=== PATIENT | female | born 1980 | race Two or more races ===

== ENCOUNTER 2018-02-22 20:04 | Emergency (ER) | payer SELFPAY ==
[~2018-02-22] VITALS: Ht 147.3 cm; Wt 66.2 kg
[2018-02-22 20:56] LABS: BASO % 1 % (0-3); EOS # 0.1 x10^3/uL (0.0-0.7); EOS % 1 % (0-3); HEMATOCRIT 39.6 % (36.0-47.0); HEMOGLOBIN 13.8 g/dL (12.0-15.5); LYMPH # 2.1 x10^3/uL (1.0-4.8); LYMPH % 26 % (24-48); MEAN CORPUSCULAR HEMOGLOBIN 30 pg (25-35); MEAN CORPUSCULAR HGB CONC 35 g/dL (31-37); MEAN CORPUSCULAR VOLUME 87 fL (79-100); MONO # 0.7 x10^3/uL (0.0-1.1); MONO % 8 % (0-9); NEUT # 5.3 x10^3uL (1.8-7.7); NEUT % 64 % (31-73); PLATELET COUNT 270 x10^3/uL (140-400); RED BLOOD COUNT 4.54 x10^6/uL (3.50-5.40); RED CELL DISTRIBUTION WIDTH 13.4 % (11.5-14.5); WHITE BLOOD COUNT 8.2 x10^3/uL (4.0-11.0)
[2018-02-22 20:58] LABS: BILIRUBIN,URINE NEGATIVE (NEG); CLARITY,URINE CLEAR; COLOR,URINE YELLOW; NITRITE,URINE NEGATIVE (NEG); PROTEIN,URINE NEGATIVE (NEG-TRACE); UROBILINOGEN,URINE 0.2 mg/dL (0.2 mg/dL)
[2018-02-22 21:02] LABS: CALCIUM 8.9 mg/dL (8.5-10.1); CREATININE 0.7 mg/dL (0.6-1.0); GFR 93.2; POTASSIUM 3.5 mmol/L (3.5-5.1)
[2018-02-22 21:11] LABS: BACTERIA,URINE MOD /HPF (0-FEW); RBC,URINE 0 /HPF (0-2); SQUAMOUS EPITHELIAL CELL,UR FEW /LPF
--- NOTE | 2018-02-22 21:30 | PHYS DOC ---
Past Medical History Past Medical History: No Pertinent History Past Surgical History: No Surgical History Alcohol Use: None Drug Use: None Adult General Chief Complaint Chief Complaint: VAGINAL BLEEDING HPI HPI Patient is a 37 year old female who presents with vaginal bleeding in early . The patient states her last menstrual period was December 20. She has had positive test and has already undergone ultrasound but states there was nothing seen in her uterus. Today, she presents to the ER complaining of spotting of blood. She noticed one episode of this that started about one hour prior to presentation. She has no overt or rita bleeding. She has no pelvic pain or cramps. No fever or chills. Urinary symptoms. Review of Systems Review of Systems Constitutional: Denies fever or chills Eyes: Denies change in visual acuity HENT: Denies nasal congestion Respiratory: Denies cough or shortness of breath Cardiovascular: No additional information GI: Denies abdominal pain : Denies dysuria or hematuria Musculoskeletal: Denies back pain Integument: Denies rash or skin lesions Neurologic: Denies headache All other systems were reviewed and found to be within normal limits, except as documented in this note. Current Medications Current Medications Current Medications Medications (Trade) Dose Ordered Sig/Carly Start Time Stop Time Status Last Admin Dose Admin Acetaminophen (Tylenol) 1,000 mg 1X ONCE 02/23/18 00:15 02/23/18 00:16 UNV 02/23/18 00:05 1,000 MG Acetaminophen/ Butalbital/ Caffeine (Fioricet) 1 tab 1X ONCE 02/23/18 00:15 02/23/18 00:15 DC Allergies Allergies Allergies Coded Allergies Type Severity Reaction Last Updated Verified No Known Drug Allergies 02/22/18 No Physical Exam Physical Exam Constitutional: Well developed, well nourished, no acute distress HENT: Normocephalic, atraumatic, bilateral external ears normal, oropharynx moist Eyes: PERRLA, EOMI, conjunctiva normal Neck: Normal range of motion, no tenderness Cardiovascular:Heart rate regular rhythm, no murmur Lungs & Thorax: Bilateral breath sounds clear to auscultation Abdomen: Bowel sounds normal, soft, no tenderness Skin: Warm, dry, no erythema, no rash Back: No tenderness, no CVA tenderness. Extremities: No edema Neurologic: Alert and oriented X 3 Psychologic: Affect normal Pelvic: Normal female external genitalia. Vaginal mucosa is moist and uninflamed. Cervical os is visualized to be closed but with scant amt of old appearing blood at the OS. no active bleeding. No CMT or adnexal tenderness. Current Patient Data Vital Signs Vital Signs Date Time Temp Pulse Resp B/P (MAP) Pulse Ox O2 Delivery O2 Flow Rate FiO2 02/23/18 00:06 68 121/56 (77) 99 Room Air 02/22/18 20:52 98.2 18 98.2 Lab Values Laboratory Tests Test 02/22/18 20:35 02/22/18 20:42 02/22/18 20:47 Urine Collection Type Unknown Urine Color Yellow Urine Clarity Clear Urine pH 5.0 Urine Specific [place] 1.010 Urine Protein Negative mg/dL (NEG-TRACE) Urine Glucose (UA) Negative mg/dL (NEG) Urine Ketones (Stick) Negative mg/dL (NEG) Urine Blood Small (NEG) Urine Nitrite Negative (NEG) Urine Bilirubin Negative (NEG) Urine Urobilinogen Dipstick 0.2 mg/dL (0.2 mg/dL) Urine Leukocyte Esterase Trace (NEG) Urine RBC 0 /HPF (0-2) Urine WBC 1-4 /HPF (0-4) Urine Squamous Epithelial Cells Few /LPF Urine Bacteria Mod /HPF (0-FEW) Urine Mucus Mod /LPF White Blood Count 8.2 x10^3/uL (4.0-11.0) Red Blood Count 4.54 x10^6/uL (3.50-5.40) Hemoglobin 13.8 g/dL (12.0-15.5) Hematocrit 39.6 % (36.0-47.0) Mean Corpuscular Volume 87 fL (79-100) Mean Corpuscular Hemoglobin 30 pg (25-35) Mean Corpuscular Hemoglobin Concent 35 g/dL (31-37) Red Cell Distribution Width 13.4 % (11.5-14.5) Platelet Count 270 x10^3/uL (140-400) Neutrophils (%) (Auto) 64 % (31-73) Lymphocytes (%) (Auto) 26 % (24-48) Monocytes (%) (Auto) 8 % (0-9) Eosinophils (%) (Auto) 1 % (0-3) Basophils (%) (Auto) 1 % (0-3) Neutrophils # (Auto) 5.3 x10^3uL (1.8-7.7) Lymphocytes # (Auto) 2.1 x10^3/uL (1.0-4.8) Monocytes # (Auto) 0.7 x10^3/uL (0.0-1.1) Eosinophils # (Auto) 0.1 x10^3/uL (0.0-0.7) Basophils # (Auto) 0.0 x10^3/uL (0.0-0.2) Maternal Serum HCG Beta Subunit 3824 mIU/mL (0-5) H Sodium Level 137 mmol/L (136-145) Potassium Level 3.5 mmol/L (3.5-5.1) Chloride Level 104 mmol/L (98-107) Carbon Dioxide Level 27 mmol/L (21-32) Anion Gap 6 (6-14) Blood Urea Nitrogen 7 mg/dL (7-20) Creatinine 0.7 mg/dL (0.6-1.0) Estimated GFR (Cockcroft-Gault) 93.2 Glucose Level 122 mg/dL (70-99) H Calcium Level 8.9 mg/dL (8.5-10.1) POC Urine HCG, Qualitative Hcg positive (Negative) Laboratory Tests 02/22/18 20:42 Laboratory Tests 02/22/18 20:42 Microbiology 02/22/18 Wet Prep - Final, Complete EKG EKG [] Radiology/Procedures Radiology/Procedures FINDINGS: Sonographic evaluation of the pelvis was performed transabdominally and transvaginally. The uterus is anteverted and measures 8.9 x 5.2 x 4.5 cm. There are 2 endometrial cystic structures suggesting a twin gestation. One demonstrates a pole measuring 6 weeks 3 days by crown-rump length. No heart tones are identified. The second cyst contains no pole or yolk sac. There is fluid external to both sacs. There is no subchorionic hemorrhage. The right ovary measures 2.2 x 1.2 x 1.2 cm. The left ovary is not visualized currently. There are no suspicious lesions. There is normal flow on the right. There is no adnexal mass. There is no significant free fluid. IMPRESSION: 1. Twin intrauterine gestation. One sac has a pole measuring 6 weeks 3 days, but there is no detectable heart motion suggesting demise. The other sac is smaller and contains no pole. Recommend ongoing follow-up of quantitative beta hCG to zero. Course & Med Decision Making Course & Med Decision Making Pertinent Labs and Imaging studies reviewed. (See chart for details) 21:00: Patient is seen and examined. Pelvic exam is completed. Examination is accompanied by female registered nurse. Standard miscarriage workup is ordered. 00:15: All results are reviewed and discussed with the patient. Quant > 3,500 this evening. Unclear if she has active miscarriage. Patient will need to have repeat quantitative hCG and ultrasound. She has an appointment for March 04. I advised her to contact her physician's office tomorrow to see if there is any possibility of moving her appointment forward. Otherwise, pelvic rest precautions are discussed. The patient is discharged to home. All of her questions are answered prior to discharge. Her blood type is O+. Dragon Disclaimer Dragon Disclaimer This electronic medical record was generated, in whole or in part, using a voice recognition dictation system. Departure Departure Referrals: NO PCP (PCP) DOLORES DE LA CRUZ DO Feb 22, 2018 21:29
--- NOTE | 2018-02-22 23:30 | RAD ---
EXAM: OBSTETRIC ULTRASOUND <14 WEEKS. HISTORY: Vaginal bleeding in . FINDINGS: Sonographic evaluation of the pelvis was performed transabdominally and transvaginally. The uterus is anteverted and measures 8.9 x 5.2 x 4.5 cm. There are 2 endometrial cystic structures suggesting a twin gestation. One demonstrates a pole measuring 6 weeks 3 days by crown-rump length. No heart tones are identified. The second cyst contains no pole or yolk sac. There is fluid external to both sacs. There is no subchorionic hemorrhage. The right ovary measures 2.2 x 1.2 x 1.2 cm. The left ovary is not visualized currently. There are no suspicious lesions. There is normal flow on the right. There is no adnexal mass. There is no significant free fluid. IMPRESSION: 1. Twin intrauterine gestation. One sac has a pole measuring 6 weeks 3 days, but there is no detectable heart motion suggesting demise. The other sac is smaller and contains no pole. Recommend ongoing follow-up of quantitative beta hCG to zero. Electronically signed by: Doris Hinds MD (02/22/2018 11:27 PM) [facility]
[2018-02-23 00:06] VITALS: BP 121/56
[2018-02-23] MEDS ORDERED: ACETAMINOPHEN 500 MG TABLET PO ONE ×3 (00:15)
[2018-02-23] MEDS ORDERED: BUTALB/APAP/CAFEIN 50/325/40MG TABLET. PO ONE (00:15)
[2018-02-24 15:29] LABS: GC PROBE Negative (Negative)
== END 2018-02-23 00:12 | disposition home or self-care (01) ==
LOC: ER 20:04 → EDBD 20:04 → ER 02-23 00:12
DX: O20.8 Other hemorrhage in early pregnancy (principal); Z3A.09 9 weeks gestation of pregnancy
CPT/HCPCS: 36415; 76801; 80048; 81001; 81025; 84702; 85025; 86850; 86900; 86901; 87491; 87591; 99285; Q0111

== ENCOUNTER 2018-02-27 17:23 | Emergency (ER) | payer SELFPAY ==
[~2018-02-27] VITALS: Ht 147.3 cm; Wt 66.2 kg
[2018-02-27 17:37] VITALS: BP 139/66
--- NOTE | 2018-02-27 18:03 | PHYS DOC ---
Past Medical History Past Medical History: No Pertinent History Past Surgical History: No Surgical History Additional Past Surgical Histo: LEEP PROCEDURE Alcohol Use: None Drug Use: None Adult General Chief Complaint Chief Complaint: VAGINAL BLEEDING HPI HPI 37-year-old female presents to ER for complaints of increased vaginal bleeding and lower abdominal cramping. Patient reports she is approximately 10 weeks was seen in the ER on 02/22/18 and then had follow-up with her [facility] 2 days after that ER visit. She reported she had improved sxs until yest. when she developed more bright red blood vaginal bleeding where prior discharge was brown in color. She reports she is with LMP 12/20/17. She reports she has used 2 pads since this morning and possibly passed some tissue with the vaginal bleeding. She denies clots or large amt of blood loss. She denies N/V, fever/ chills, dizziness/lightheadedness, or urinary sxs. She reports she had reg. BM yest. She reports her appetite has been NL. Review of Systems Review of Systems Constitutional: Denies fever or chills [] Eyes: Denies change in visual acuity, redness, or eye pain [] HENT: Denies nasal congestion or sore throat [] Respiratory: Denies cough or shortness of breath [] Cardiovascular: No additional information not addressed in HPI [] GI: Denies abdominal pain, nausea, vomiting, bloody stools or diarrhea [] : Denies dysuria or hematuria [] Musculoskeletal: Denies back pain or joint pain [] Integument: Denies rash or skin lesions [] Neurologic: Denies headache, focal weakness or sensory changes [] Endocrine: Denies polyuria or polydipsia [] All other systems were reviewed and found to be within normal limits, except as documented in this note. Allergies Allergies Allergies Coded Allergies Type Severity Reaction Last Updated Verified No Known Drug Allergies 02/22/18 No Physical Exam Physical Exam Constitutional: Well developed, well nourished, no acute distress, non-toxic appearance. [] HENT: Normocephalic, atraumatic, bilateral external ears normal, oropharynx moist, no oral exudates, nose normal. [] Eyes: PERRLA, EOMI, conjunctiva normal, no discharge. [] Neck: Normal range of motion, no tenderness, supple, no stridor. [] Cardiovascular:Heart rate regular rhythm, no murmur [] Lungs & Thorax: Bilateral breath sounds clear to auscultation [] Abdomen: Bowel sounds normal, soft, no tenderness, no masses, no pulsatile masses. [] Skin: Warm, dry, no erythema, no rash. [] Back: No tenderness, no CVA tenderness. [] Extremities: No tenderness, no cyanosis, no clubbing, ROM intact, no edema. [] Neurologic: Alert and oriented X 3, normal motor function, normal sensory function, no focal deficits noted. [] Psychologic: Affect normal, judgement normal, mood normal. [] Current Patient Data Vital Signs Vital Signs Date Time Temp Pulse Resp B/P (MAP) Pulse Ox O2 Delivery O2 Flow Rate FiO2 02/27/18 17:37 98.5 69 14 139/66 (90) 100 Room Air 98.5 Lab Values Laboratory Tests Test 02/27/18 17:36 02/27/18 18:15 Urine Collection Type Unknown Urine Color Yellow Urine Clarity Clear Urine pH 6.5 Urine Specific [place] <=1.005 Urine Protein Negative mg/dL (NEG-TRACE) Urine Glucose (UA) Negative mg/dL (NEG) Urine Ketones (Stick) Negative mg/dL (NEG) Urine Blood Small (NEG) Urine Nitrite Negative (NEG) Urine Bilirubin Negative (NEG) Urine Urobilinogen Dipstick 0.2 mg/dL (0.2 mg/dL) Urine Leukocyte Esterase Negative (NEG) Urine RBC 0 /HPF (0-2) Urine WBC 0 /HPF (0-4) Urine Squamous Epithelial Cells Mod /LPF Urine Bacteria 0 /HPF (0-FEW) White Blood Count 7.7 x10^3/uL (4.0-11.0) Red Blood Count 4.33 x10^6/uL (3.50-5.40) Hemoglobin 13.1 g/dL (12.0-15.5) Hematocrit 37.4 % (36.0-47.0) Mean Corpuscular Volume 86 fL (79-100) Mean Corpuscular Hemoglobin 30 pg (25-35) Mean Corpuscular Hemoglobin Concent 35 g/dL (31-37) Red Cell Distribution Width 13.1 % (11.5-14.5) Platelet Count 248 x10^3/uL (140-400) Neutrophils (%) (Auto) 66 % (31-73) Lymphocytes (%) (Auto) 24 % (24-48) Monocytes (%) (Auto) 9 % (0-9) Eosinophils (%) (Auto) 1 % (0-3) Basophils (%) (Auto) 0 % (0-3) Neutrophils # (Auto) 5.0 x10^3uL (1.8-7.7) Lymphocytes # (Auto) 1.9 x10^3/uL (1.0-4.8) Monocytes # (Auto) 0.7 x10^3/uL (0.0-1.1) Eosinophils # (Auto) 0.1 x10^3/uL (0.0-0.7) Basophils # (Auto) 0.0 x10^3/uL (0.0-0.2) Maternal Serum HCG Beta Subunit 1601 mIU/mL (0-5) H Sodium Level 140 mmol/L (136-145) Potassium Level 3.5 mmol/L (3.5-5.1) Chloride Level 104 mmol/L (98-107) Carbon Dioxide Level 28 mmol/L (21-32) Anion Gap 8 (6-14) Blood Urea Nitrogen 8 mg/dL (7-20) Creatinine 0.8 mg/dL (0.6-1.0) Estimated GFR (Cockcroft-Gault) 79.9 BUN/Creatinine Ratio 10 (6-20) Glucose Level 107 mg/dL (70-99) H Calcium Level 9.2 mg/dL (8.5-10.1) Total Bilirubin 0.2 mg/dL (0.2-1.0) Aspartate Amino Transferase (AST) 15 U/L (15-37) Alanine Aminotransferase (ALT) 27 U/L (14-59) Alkaline Phosphatase 81 U/L (46-116) Total Protein 7.6 g/dL (6.4-8.2) Albumin 3.9 g/dL (3.4-5.0) Albumin/Globulin Ratio 1.1 (1.0-1.7) Laboratory Tests 02/27/18 18:15 Laboratory Tests 02/27/18 18:15 EKG EKG [] Radiology/Procedures Radiology/Procedures Indication:VAG BLEEDING TECHNIQUE: Ultrasound OB less than 14 weeks. COMPARISON: 02/22/2018 FINDINGS: The uterus measures 11.0 x 7.0 x 6.0 cm (longitudinal, transverse, AP). Single intrauterine gestation sac is seen with crown-rump length measuring 0.46 cm corresponding to gestation age of 6 weeks 1 day. No cardiac activity is seen. Cervix is closed. Right ovary measures 2.1 x 1.3 x 1.3 cm and demonstrates evidence of blood flow. Left ovary not visualized. IMPRESSION: Single intrauterine gestation with pole without cardiac activity with gestation age of 6 weeks 1 day. Correlate with beta-hCG. Electronically signed by: De Tellez DO (02/27/2018 7:10 PM) [facility] DICTATED and SIGNED BY: DE TELLEZ DO DATE: 02/27/181905 Course & Med Decision Making Course & Med Decision Making Pertinent Labs and Imaging studies reviewed. (See chart for details) 2016: Spoke with Dr. Germain at [facility] who was oncall for pt's OB/ [employer] office and discussed pt's case and plan of care. He is okay with patient being discharged home and wants patient to follow up with their office on Friday for reevaluation of the hCG Quant. This phone call was discussed with patient along with all test results. Patient denies any increase in vaginal bleeding and reports abdominal cramping has also improved. Patient remains nontoxic in appearance and in no visible distress during this discussion. Discussed plans for patient to call the [facility] office Friday to discuss ER visit and need for follow-up that morning for recheck of hCG Quant. Education provided on signs and symptoms to return to ER for. Dragon Disclaimer Dragon Disclaimer This electronic medical record was generated, in whole or in part, using a voice recognition dictation system. Departure Departure Impression: Primary Impression: Threatened miscarriage in early Additional Impression: Vaginal bleeding during Disposition: HOME, SELF-CARE Condition: STABLE Referrals: NO PCP (PCP) Patient Instructions: Threatened Miscarriage, Vaginal Bleeding During , First Trimester Additional Instructions: Drink plenty of water with well balanced meals. Plenty of rest. Tylenol as needed for pain relief as directed on container. Avoid insertion of anything vaginal until follow-up next week with your [facility] doctor. Your Beta HCG level was 1601 today. With any concerns/worsening symptoms or if you begin soaking 1-2 pads within 1 hour return to Emergency Department for re-evaluation. Problem Qualifiers ELENI HAYDEN APRN Feb 27, 2018 18:03
[2018-02-27 18:08] LABS: BILIRUBIN,URINE NEGATIVE (NEG); CLARITY,URINE CLEAR; COLOR,URINE YELLOW; NITRITE,URINE NEGATIVE (NEG); PH,URINE 6.5; PROTEIN,URINE NEGATIVE (NEG-TRACE); UROBILINOGEN,URINE 0.2 mg/dL (0.2 mg/dL)
[2018-02-27 18:15] LABS: BACTERIA,URINE 0 /HPF (0-FEW); RBC,URINE 0 /HPF (0-2); SQUAMOUS EPITHELIAL CELL,UR MOD /LPF; WBC,URINE 0 /HPF (0-4)
[2018-02-27 18:27] LABS: BASO % 0 % (0-3); EOS # 0.1 x10^3/uL (0.0-0.7); EOS % 1 % (0-3); HEMATOCRIT 37.4 % (36.0-47.0); HEMOGLOBIN 13.1 g/dL (12.0-15.5); LYMPH # 1.9 x10^3/uL (1.0-4.8); LYMPH % 24 % (24-48); MEAN CORPUSCULAR HEMOGLOBIN 30 pg (25-35); MEAN CORPUSCULAR HGB CONC 35 g/dL (31-37); MEAN CORPUSCULAR VOLUME 86 fL (79-100); MONO # 0.7 x10^3/uL (0.0-1.1); MONO % 9 % (0-9); NEUT % 66 % (31-73); PLATELET COUNT 248 x10^3/uL (140-400); RED BLOOD COUNT 4.33 x10^6/uL (3.50-5.40); RED CELL DISTRIBUTION WIDTH 13.1 % (11.5-14.5); WHITE BLOOD COUNT 7.7 x10^3/uL (4.0-11.0)
[2018-02-27 18:41] LABS: CALCIUM 9.2 mg/dL (8.5-10.1); CREATININE 0.8 mg/dL (0.6-1.0); GFR 79.9; POTASSIUM 3.5 mmol/L (3.5-5.1)
[2018-02-27 18:46] LABS: ALBUMIN 3.9 g/dL (3.4-5.0); ALBUMIN/GLOBULIN RATIO 1.1 (1.0-1.7); TOTAL BILIRUBIN 0.2 mg/dL (0.2-1.0); TOTAL PROTEIN 7.6 g/dL (6.4-8.2)
--- NOTE | 2018-02-27 19:13 | RAD ---
Indication:VAG BLEEDING TECHNIQUE: Ultrasound OB less than 14 weeks. COMPARISON: 02/22/2018 FINDINGS: The uterus measures 11.0 x 7.0 x 6.0 cm (longitudinal, transverse, AP). Single intrauterine gestation sac is seen with crown-rump length measuring 0.46 cm corresponding to gestation age of 6 weeks 1 day. No cardiac activity is seen. Cervix is closed. Right ovary measures 2.1 x 1.3 x 1.3 cm and demonstrates evidence of blood flow. Left ovary not visualized. IMPRESSION: Single intrauterine gestation with pole without cardiac activity with gestation age of 6 weeks 1 day. Correlate with beta-hCG. Electronically signed by: De Perez DO (02/27/2018 7:10 PM) [facility]
== END 2018-02-27 21:13 | disposition home or self-care (01) ==
LOC: ER 17:23
DX: O20.0 Threatened abortion (principal); Z3A.10 10 weeks gestation of pregnancy
CPT/HCPCS: 36415; 76801; 76817; 80053; 81001; 84702; 85025; 99285-25

== ENCOUNTER 2018-05-05 16:42 | Emergency (ER) | payer SELFPAY ==
[~2018-05-05] VITALS: Ht 149.9 cm; Wt 61.7 kg
[2018-05-05 17:22] LABS: BILIRUBIN,URINE NEGATIVE (NEG); CLARITY,URINE CLEAR; COLOR,URINE YELLOW; NITRITE,URINE NEGATIVE (NEG); PH,URINE 5.5; PROTEIN,URINE NEGATIVE (NEG-TRACE)
[2018-05-05 17:28] LABS: BACTERIA,URINE 0 /HPF (0-FEW); RBC,URINE >40 /HPF (0-2); SQUAMOUS EPITHELIAL CELL,UR MOD /LPF; WBC,URINE 0 /HPF (0-4)
--- NOTE | 2018-05-05 17:38 | PHYS DOC ---
Past Medical History Past Medical History: No Pertinent History Past Surgical History: No Surgical History Additional Past Surgical Histo: LEEP PROCEDURE Alcohol Use: None Drug Use: None Adult General Chief Complaint Chief Complaint: VAGINAL BLEEDING HPI HPI Patient is a 37 year old [f__sex] who presents with [] Review of Systems Review of Systems Constitutional: Denies fever or chills [] Eyes: Denies change in visual acuity, redness, or eye pain [] HENT: Denies nasal congestion or sore throat [] Respiratory: Denies cough or shortness of breath [] Cardiovascular: No additional information not addressed in HPI [] GI: Denies abdominal pain, nausea, vomiting, bloody stools or diarrhea [] : Denies dysuria or hematuria [] Musculoskeletal: Denies back pain or joint pain [] Integument: Denies rash or skin lesions [] Neurologic: Denies headache, focal weakness or sensory changes [] Endocrine: Denies polyuria or polydipsia [] All other systems were reviewed and found to be within normal limits, except as documented in this note. Allergies Allergies Allergies Coded Allergies Type Severity Reaction Last Updated Verified No Known Drug Allergies 02/22/18 No Physical Exam Physical Exam Constitutional: Well developed, well nourished, no acute distress, non-toxic appearance. [] HENT: Normocephalic, atraumatic, bilateral external ears normal, oropharynx moist, no oral exudates, nose normal. [] Eyes: PERRLA, EOMI, conjunctiva normal, no discharge. [] Neck: Normal range of motion, no tenderness, supple, no stridor. [] Cardiovascular:Heart rate regular rhythm, no murmur [] Lungs & Thorax: Bilateral breath sounds clear to auscultation [] Abdomen: Bowel sounds normal, soft, no tenderness, no masses, no pulsatile masses. [] Skin: Warm, dry, no erythema, no rash. [] Back: No tenderness, no CVA tenderness. [] Extremities: No tenderness, no cyanosis, no clubbing, ROM intact, no edema. [] Neurologic: Alert and oriented X 3, normal motor function, normal sensory function, no focal deficits noted. [] Psychologic: Affect normal, judgement normal, mood normal. [] Current Patient Data Vital Signs Vital Signs Date Time Temp Pulse Resp B/P (MAP) Pulse Ox O2 Delivery O2 Flow Rate FiO2 11/6/18 18:38 63 94/52 (66) 05/05/18 17:12 97.5 20 99 Room Air 97.5 Lab Values Laboratory Tests Test 05/05/18 17:00 05/05/18 17:50 05/05/18 18:06 Urine Collection Type Unknown Urine Color Yellow Urine Clarity Clear Urine pH 5.5 Urine Specific [place] 1.015 Urine Protein Negative mg/dL (NEG-TRACE) Urine Glucose (UA) Negative mg/dL (NEG) Urine Ketones (Stick) Negative mg/dL (NEG) Urine Blood Large (NEG) Urine Nitrite Negative (NEG) Urine Bilirubin Negative (NEG) Urine Urobilinogen Dipstick 1.0 mg/dL (0.2 mg/dL) Urine Leukocyte Esterase Negative (NEG) Urine RBC >40 /HPF (0-2) Urine WBC 0 /HPF (0-4) Urine Squamous Epithelial Cells Mod /LPF Urine Bacteria 0 /HPF (0-FEW) Urine Mucus Mod /LPF White Blood Count 7.5 x10^3/uL (4.0-11.0) Red Blood Count 4.32 x10^6/uL (3.50-5.40) Hemoglobin 13.1 g/dL (12.0-15.5) Hematocrit 36.9 % (36.0-47.0) Mean Corpuscular Volume 85 fL (79-100) Mean Corpuscular Hemoglobin 30 pg (25-35) Mean Corpuscular Hemoglobin Concent 36 g/dL (31-37) Red Cell Distribution Width 13.0 % (11.5-14.5) Platelet Count 264 x10^3/uL (140-400) Neutrophils (%) (Auto) 65 % (31-73) Lymphocytes (%) (Auto) 26 % (24-48) Monocytes (%) (Auto) 8 % (0-9) Eosinophils (%) (Auto) 1 % (0-3) Basophils (%) (Auto) 1 % (0-3) Neutrophils # (Auto) 4.8 x10^3uL (1.8-7.7) Lymphocytes # (Auto) 1.9 x10^3/uL (1.0-4.8) Monocytes # (Auto) 0.6 x10^3/uL (0.0-1.1) Eosinophils # (Auto) 0.1 x10^3/uL (0.0-0.7) Basophils # (Auto) 0.0 x10^3/uL (0.0-0.2) Maternal Serum HCG Beta Subunit 6 mIU/mL (0-5) H Sodium Level 140 mmol/L (136-145) Potassium Level 3.5 mmol/L (3.5-5.1) Chloride Level 103 mmol/L (98-107) Carbon Dioxide Level 28 mmol/L (21-32) Anion Gap 9 (6-14) Blood Urea Nitrogen 11 mg/dL (7-20) Creatinine 0.7 mg/dL (0.6-1.0) Estimated GFR (Cockcroft-Gault) 93.2 BUN/Creatinine Ratio 16 (6-20) Glucose Level 110 mg/dL (70-99) H Calcium Level 8.8 mg/dL (8.5-10.1) Total Bilirubin 0.2 mg/dL (0.2-1.0) Aspartate Amino Transferase (AST) 8 U/L (15-37) L Alanine Aminotransferase (ALT) 25 U/L (14-59) Alkaline Phosphatase 102 U/L (46-116) Total Protein 7.2 g/dL (6.4-8.2) Albumin 3.5 g/dL (3.4-5.0) Albumin/Globulin Ratio 0.9 (1.0-1.7) L POC Urine HCG, Qualitative Hcg negative (Negative) Laboratory Tests 05/05/18 17:50 Laboratory Tests 05/05/18 17:50 Microbiology 05/05/18 Wet Prep - Final, Complete EKG EKG [] Radiology/Procedures Radiology/Procedures [] Course & Med Decision Making Course & Med Decision Making Pertinent Labs and Imaging studies reviewed. (See chart for details) [] Dragon Disclaimer Dragon Disclaimer This electronic medical record was generated, in whole or in part, using a voice recognition dictation system. Departure Departure Impression: Primary Impression: Vaginal bleeding Additional Impression: Abdominal cramping Disposition: 01 HOME, SELF-CARE Condition: STABLE Referrals: NO PCP (PCP) FANG CONNER MD [employer] doctor for follow-up or call your doctor at [facility] Patient Instructions: Abdominal Pain, Abnormal Uterine Bleeding Additional Instructions: You will need follow-up this week with [employer] for further care and possible D&C as you may have retained products of conception in your uterus from your recent miscarriage. If you start soaking through more than 1-2 pads in 1 hour E should have reevaluation by [employer] or return to the emergency department. Tylenol as directed on container for pain as needed. Avoid insertion of anything vaginal until follow-up with [employer]. Problem Qualifiers ELENI HAYDEN APRN May 05, 2018 17:38
[2018-05-05 18:13] LABS: BASO % 1 % (0-3); EOS # 0.1 x10^3/uL (0.0-0.7); EOS % 1 % (0-3); HEMATOCRIT 36.9 % (36.0-47.0); HEMOGLOBIN 13.1 g/dL (12.0-15.5); LYMPH # 1.9 x10^3/uL (1.0-4.8); LYMPH % 26 % (24-48); MEAN CORPUSCULAR HEMOGLOBIN 30 pg (25-35); MEAN CORPUSCULAR HGB CONC 36 g/dL (31-37); MEAN CORPUSCULAR VOLUME 85 fL (79-100); MONO # 0.6 x10^3/uL (0.0-1.1); MONO % 8 % (0-9); NEUT # 4.8 x10^3uL (1.8-7.7); NEUT % 65 % (31-73); PLATELET COUNT 264 x10^3/uL (140-400); RED BLOOD COUNT 4.32 x10^6/uL (3.50-5.40); WHITE BLOOD COUNT 7.5 x10^3/uL (4.0-11.0)
[2018-05-05 18:24] LABS: CALCIUM 8.8 mg/dL (8.5-10.1); CREATININE 0.7 mg/dL (0.6-1.0); GFR 93.2; POTASSIUM 3.5 mmol/L (3.5-5.1)
[2018-05-05 18:30] LABS: ALBUMIN 3.5 g/dL (3.4-5.0); ALBUMIN/GLOBULIN RATIO 0.9 (1.0-1.7); TOTAL BILIRUBIN 0.2 mg/dL (0.2-1.0); TOTAL PROTEIN 7.2 g/dL (6.4-8.2)
--- NOTE | 2018-05-05 19:31 | RAD ---
EXAM: Pelvic sonogram. HISTORY: Pain and vaginal bleeding. TECHNIQUE: Sonographic imaging of the pelvis was performed. COMPARISON: 02/27/2018. FINDINGS: The uterus measures 8.4 x 4.3 x 4.1 cm. There is heterogeneous echogenicity within the endometrial cavity, with an endometrial stripe measuring 19 mm in maximum thickness. There is blood flow within a portion of the endometrial cavity. The right ovary measures 3.2 x 2.0 x 1.8 cm and demonstrates normal blood flow. There is a 2.6 cm right ovarian follicular cyst. The left ovary is not seen due to left adnexal bowel gas. IMPRESSION: 1. Heterogeneously thickened endometrium with a component of blood flow. Given a history of recent miscarriage, this is concerning for retained products of conception. 2. 2.6 cm right ovarian cyst. 3. Nonvisualization of the left ovary. Electronically signed by: Modesta Tran MD (05/05/2018 7:28 PM) [facility]
[2018-05-05 20:46] VITALS: BP 102/59
[2018-05-07 14:29] LABS: GC PROBE Negative (Negative)
== END 2018-05-05 20:48 | disposition home or self-care (01) ==
LOC: ER 16:42
DX: N93.9 Abnormal uterine and vaginal bleeding, unspecified (principal); R10.9 Unspecified abdominal pain
CPT/HCPCS: 36415; 76830; 76856; 80053; 81001; 81025; 84702; 85025; 87491; 87591; 99285; Q0111

== ENCOUNTER 2020-03-27 13:27 | Emergency (ER) | payer SELFPAY ==
[~2020-03-27] VITALS: Ht 147.3 cm; Wt 68.1 kg
--- NOTE | 2020-03-27 15:00 | PHYS DOC ---
Past Medical History Past Medical History: No Pertinent History Past Surgical History: No Surgical History Additional Past Surgical Histo: LEEP PROCEDURE Smoking Status: Never Smoker Alcohol Use: None Drug Use: None General Adult EDM: Chief Complaint: OTHER COMPLAINTS HPI: HPI: Patient is a 39 year old [id number] grandmother who presents to the ED today requesting a COVID19 test. Patient states she stays at home with her grandchildren and has had nasal congestion for couple days and would like to be tested for COVID19. She is complaining of subjective fevers as well. Review of Systems: Review of Systems: Constitutional: Reports subjective fevers Eyes: Denies change in visual acuity. [] HENT: Reports nasal congestion, denies sore throat. [] Respiratory: Denies cough or shortness of breath. [] Cardiovascular: Denies chest pain or edema. [] GI: Denies abdominal pain, nausea, vomiting, bloody stools or diarrhea. [] : Denies dysuria. [] Musculoskeletal: Denies back pain or joint pain. [] Integument: Denies rash. [] Neurologic: Denies headache, focal weakness or sensory changes. [] Psychiatric: Denies depression or anxiety. [] Heart Score: Risk Factors: Risk Factors: DM, Current or recent (<one month) smoker, HTN, HLP, family his tory of CAD, obesity. Risk Scores: Score 0 - 3: 2.5% MACE over next 6 weeks - Discharge Home Score 4 - 6: 20.3% MACE over next 6 weeks - Admit for Clinical Observation Score 7 - 10: 72.7% MACE over next 6 weeks - Early Invasive Strategies Allergies: Allergies: Allergies Coded Allergies Type Severity Reaction Last Updated Verified No Known Drug Allergies 02/22/18 No Physical Exam: PE: Constitutional: Well developed, well nourished, no acute distress, non-toxic appearance. [] HENT: Normocephalic, atraumatic, bilateral external ears normal, oropharynx moist, no oral exudates, nose normal. [] Eyes: PERRLA, EOMI, conjunctiva normal, no discharge. [] Neck: Normal range of motion, no tenderness, supple, no stridor. [] Cardiovascular:Heart rate regular rhythm, no murmur [] Lungs & Thorax: Bilateral breath sounds clear to auscultation [] Abdomen: Bowel sounds normal, soft, no tenderness, no masses, no pulsatile masses. [] Skin: Warm, dry, no erythema, no rash. [] Back: No tenderness, no CVA tenderness. [] Extremities: No tenderness, no cyanosis, no clubbing, ROM intact, no edema. [] Neurologic: Alert and oriented X 3, normal motor function, normal sensory functi on, no focal deficits noted. [] Psychologic: Affect normal, judgement normal, mood normal. [] EKG: EKG: [] Radiology/Procedures: Radiology/Procedures: [] Course & Med Decision Making: Course & Med Decision Making Pertinent Labs and Imaging studies reviewed. (See chart for details) This is a 39-year-old female patient presenting to the ED today requesting COVID19 test. Patient was tested. Results will be called to her, instructed to quarantine herself. supportive care measures recommended. Dragon Disclaimer: Dragon Disclaimer: This electronic medical record was generated, in whole or in part, using a voice recognition dictation system. Departure Departure Impression: Primary Impression: Person under investigation for COVID-19 Additional Impressions: URI (upper respiratory infection) Qualified Codes: J06.9 - Acute upper respiratory infection, unspecified Fever Qualified Codes: R50.9 - Fever, unspecified Disposition: 01 HOME, SELF-CARE Condition: STABLE Referrals: NO PCP (PCP) follow up with your doctor in 1-2 weeks Patient Instructions: Upper Respiratory Infection, Adult, [id number] Additional Instructions: You were tested for COVID19. Quarantine yourself until you hear from us with results. We will call you as soon as we get your test results. Come back to the ED at any point symptoms worsen. You can take [id number] medications as needed for your symptoms. Maintain good hand hygiene. Wear your mask in public as well as at home if you around at risk populations Justicifation of Admission Dx: Justifications for Admission: Justification of Admission Dx: N/A LLOYD CARRILLO APRN Mar 27, 2020 15:00
[2020-03-27 15:30] VITALS: BP 139/79
--- NOTE | 2020-03-29 09:44 | NUR ---
IP: Informed pt of negative COVID test. Pt verbalized understanding.
== END 2020-03-27 15:30 | disposition home or self-care (01) ==
LOC: ER 13:27
DX: J06.9 Acute upper respiratory infection, unspecified (principal); Z20.828 Contact with and (suspected) exposure to other viral communicable diseases; R50.9 Fever, unspecified; R09.81 Nasal congestion; Z98.890 Other specified postprocedural states
CPT/HCPCS: 99283; U0003